=== PATIENT | female | born 1975 | race Caucasian/White ===

== ENCOUNTER 2016-07-14 09:21 | Emergency (ER) | payer OTHER ==
[~2016-07-14] VITALS: Ht 162.6 cm; Wt 94.8 kg
[~2016-07-14 09:21] MED LIST: CEPH-264 PO; CLIN150C14 PO; FAMO-63 PO; PRED20TA PO; TRIA15CR TP
[2016-07-14 09:48] VITALS: BP 138/94
[2016-07-14] MEDS ORDERED: CYCLOBENZAPRINE 10 MG TABLET. PO ONE (10:15)
[2016-07-14] MEDS ORDERED: IBUPROFEN 800 MG TABLET. PO ONE (10:15)
[2016-07-14] MEDS ORDERED: CYCL10TA2 PO (10:20)
--- NOTE | 2016-07-14 10:20 | PHYS DOC ---
Past Medical History Past Medical History: Bipolar Past Surgical History: , Tubal ligation Additional Past Surgical Histo: D&C Additional Information: 0.75 TO 1 PPD Alcohol Use: Rarely Drug Use: None Adult General Chief Complaint Chief Complaint: SHOULDER INJURY [facility] HPI Patient is a 40 year old female presents to the emergency department with a history of left upper back pain for the last 3 days. Patient states she woke up with the pain and discomfort. She states she had taken Ibuprofen and Wing without relief. She states she has tried heat to the back without relief. Patient denies numbness or tingling in the hands. Review of Systems Review of Systems Constitutional: Denies fever or chills [] Eyes: Denies change in visual acuity, redness, or eye pain [] HENT: Denies nasal congestion or sore throat [] Respiratory: Denies cough or shortness of breath [] Cardiovascular: No additional information not addressed in HPI [] GI: Denies abdominal pain, nausea, vomiting, bloody stools or diarrhea [] : Denies dysuria or hematuria [] Musculoskeletal: left upper back pain denies joint pain [] Integument: Denies rash or skin lesions [] Neurologic: Denies headache, focal weakness or sensory changes [] Endocrine: Denies polyuria or polydipsia [] Allergies Allergies Allergies Coded Allergies Type Severity Reaction Last Updated Verified adhesive tape Allergy Intermediate 10/17/14 No bacitracin Allergy Intermediate rash 12/01/14 No neomycin Allergy Intermediate rash 12/01/14 No polymyxin B Allergy Intermediate rash 12/01/14 No Physical Exam Physical Exam Constitutional: Well developed, well nourished, no acute distress, non-toxic appearance. [] HENT: Normocephalic, atraumatic, bilateral external ears normal, oropharynx moist, no oral exudates, nose normal. [] Eyes: PERRLA, EOMI, conjunctiva normal, no discharge. [] Neck: Normal range of motion, no tenderness, supple, no stridor. [] Cardiovascular:Heart rate regular rhythm] Lungs & Thorax: no respiratory distress Skin: Warm, dry, no erythema, no rash. [] Back: left upper back tenderness. No cervical spine, no thoracic spine tenderness, no step-offs, no deformities noted. Extremities: No tenderness, no cyanosis, no clubbing, ROM intact, no edema. Patient with full ROM of the left arm, good sensation noted bilateral arms, equal strength noted bilaterally. Neurologic: Alert and oriented X 3, normal motor function, normal sensory function, no focal deficits noted. [] Psychologic: Affect normal, judgement normal, mood normal. [] Current Patient Data Vital Signs Vital Signs Date Time Temp Pulse Resp B/P (MAP) Pulse Ox O2 Delivery O2 Flow Rate FiO2 07/14/16 09:48 98.5 111 24 138/94 (109) 98 Room Air 98.5 EKG EKG [] Radiology/Procedures Radiology/Procedures [] Course & Med Decision Making Course & Med Decision Making Pertinent Labs and Imaging studies reviewed. (See chart for details) Patient denies injury of trauma, states she woke up with the discomfort 3 days ago. Patient will be recommended to use Flexeril to help with muscle spasm. She was instructed this medication will cause drowsiness do not take if you need to be alert and oriented. Ibuprofen 800 mg every 8 hours with food, stop taking if you develop upset stomach. Ice packs on 20 minutes and off 20 minutes several times a day. Signs and symptoms to return to the emergency department has been provided to patient. Recommended following up with PCP in 7-10 days. Patient agrees with discharge instructions, treatment regimen and followup recommendations. [] Dragon Disclaimer Dragon Disclaimer This electronic medical record was generated, in whole or in part, using a voice recognition dictation system. Departure Departure Impression: Primary Impression: Upper back pain on left side Disposition: 01 HOME, SELF-CARE Condition: STABLE Referrals: NO PCP (PCP) Patient Instructions: Back Pain, Adult, [id number] Additional Instructions: Flexeril will help with muscle spasm. This medication will cause drowsiness do not take if you need to be alert and oriented. Ibuprofen 800 mg every 8 hours with food, stop taking if you develop upset stomach. Ice packs on 20 minutes and off 20 minutes several times a day. Followup with primary care provider in 7-10 days. Return to emergency department as needed for signs and symptoms that become worse. Scripts Cyclobenzaprine Hcl (CYCLOBENZAPRINE HCL) 10 Mg Tablet 10 MG PO TID, #30 TAB Prov: SIENA LAN APRN 07/14/16 SIENA LAN APRN Jul 14, 2016 10:20
== END 2016-07-14 10:32 | disposition home or self-care (01) ==
LOC: ER 09:21
DX: M54.89 Other dorsalgia (principal); F31.9 Bipolar disorder, unspecified; F17.200 Nicotine dependence, unspecified, uncomplicated; Z98.890 Other specified postprocedural states; Z98.51 Tubal ligation status; Z88.1 Allergy status to other antibiotic agents; Z91.048 Other nonmedicinal substance allergy status
CPT/HCPCS: 99283

== ENCOUNTER 2017-07-07 09:46 | Emergency (ER) | payer SELFPAY, OTHER ==
[2017-07-07] MEDS: DEXAMETHASONE SOD PHOS 20 MG/5 ML VIAL. IM (10:26)
== END 2017-07-07 10:34 | disposition home or self-care (01) ==
LOC: ER 10:34
DX: L23.7 Allergic contact dermatitis due to plants, except food (principal); F31.9 Bipolar disorder, unspecified; Z98.51 Tubal ligation status; Z91.048 Other nonmedicinal substance allergy status; Z88.1 Allergy status to other antibiotic agents
CPT/HCPCS: 96372; 99283; J1100

== ENCOUNTER 2017-09-30 06:42 | Emergency (ER) | payer SELFPAY ==
[~2017-09-30] VITALS: Ht 162.6 cm; Wt 93.9 kg
[~2017-09-30 06:42] MED LIST changes: +CYCL10TA2 PO; +FAMO20TA5 PO; +PRED-220 PO
[2017-09-30 07:50] VITALS: BP 130/78
[2017-09-30] MEDS ORDERED: PRED20TA PO (08:27)
--- NOTE | 2017-09-30 08:27 | PHYS DOC ---
Past Medical History Past Medical History: No Pertinent History Past Surgical History: Additional Past Surgical Histo: D&C Alcohol Use: None Drug Use: None Adult General Chief Complaint Chief Complaint: SKIN RASH/ABSCESS HPI HPI 41 y/o female presents to ER for complaints of poison rosa ongoing for past 5 days. Pt reports she has been using Pepcid and topical cortisone cream. Patient states she has had minimal relief in symptoms with this treatment and with 18- month-old child at home has not been taking Benadryl due to medicine causing her to be drowsy. Patient denies any shortness of air, wheezing, or throat pain or swelling. Pt denies fever/chills. Pt reports she has had similar episodes of poison rosa/sumac and this episode hasn't got onto her face so she doesn't feel this episode as severe as previous ones. Review of Systems Review of Systems Constitutional: Denies fever or chills [] Eyes: Denies redness, or eye pain [] HENT: Denies throat swelling/pain or difficulty swallowing Respiratory: Denies cough or shortness of breath [] Cardiovascular: Denies CP/palpitations or chest tightness GI: Denies nausea/vomiting : Denies urinary sxs Musculoskeletal: Denies neck/joint pain [] Integument: Reports rash on arms/legs and abd/chest. Reports itching at rash site. Neurologic: Denies headache All other systems were reviewed and found to be within normal limits, except as documented in this note. Current Medications Current Medications Current Medications Medications (Trade) Dose Ordered Sig/Jennifer Start Time Stop Time Status Last Admin Dose Admin Prednisone (Prednisone) 50 mg 1X ONCE 09/30/17 08:45 09/30/17 08:46 DC Allergies Allergies Allergies Coded Allergies Type Severity Reaction Last Updated Verified adhesive tape Allergy Intermediate 10/17/14 No bacitracin Allergy Intermediate rash 12/01/14 No neomycin Allergy Intermediate rash 12/01/14 No polymyxin B Allergy Intermediate rash 12/01/14 No Physical Exam Physical Exam Constitutional: Well developed, well nourished, no acute distress, non-toxic appearance. [] HENT: Normocephalic, atraumatic, bilateral external ears normal, oropharynx moist, no oral exudates, nose normal. [] Eyes: PERRLA, conjunctiva normal, no discharge. [] Neck: Normal range of motion, no tenderness, supple, no gross adenopathy Cardiovascular:Heart rate regular rhythm, no murmur [] Lungs & Thorax: Bilateral breath sounds clear to auscultation. Resp. equal/ nonlabored Abdomen: Bowel sounds normal, soft, no tenderness Skin: Warm, dry. Diffuse rash on upper/lower extremities and trunk with mild erythema at site scabbed areas with no drainage at multiple sites- rash is raised, maculopapular rash diffuse linear pattern. No drainage. No blisters. Back: No tenderness, no CVA tenderness. [] Extremities: No tenderness, no cyanosis, no clubbing, ROM intact, no edema. [] Neurologic: Alert and oriented X 3, normal motor function, normal sensory function, no focal deficits noted. [] Psychologic: Affect normal, judgement normal, mood normal. [] Current Patient Data Vital Signs Vital Signs Date Time Temp Pulse Resp B/P (MAP) Pulse Ox O2 Delivery O2 Flow Rate FiO2 09/30/17 07:50 97.8 77 16 98 Room Air 97.8 EKG EKG [] Radiology/Procedures Radiology/Procedures [] Course & Med Decision Making Course & Med Decision Making Pt was offered IM steroid injection and preferred oral medications. Will give dose of Prednisone while in ER and pt was offered Pepcid- she preferred to take her own pepcid at home. Will provide pt with Rx for tapered 10 day course of Prednisone. Discharge instructions discussed and education provided on s&s to return to ER for. Discussed other OTC for tx- Calamine lotion, oatmeal bath, and benedryl if sxs worsen. Pt agreeable with discharge plan as discussed. Pt was in no visible distress with no resp. complaints. Dragon Disclaimer Dragon Disclaimer This electronic medical record was generated, in whole or in part, using a voice recognition dictation system. Departure Departure Impression: Primary Impression: Poison rosa Disposition: HOME, SELF-CARE Condition: STABLE Referrals: NO PCP (PCP) Patient Instructions: Poison [place] Additional Instructions: You can continue to take over the pepcid/benedryl or other antihistamine as directed on container. Calamine lotion to affected areas. Scripts Prednisone (PREDNISONE) 20 Mg Tablet 20 MG PO DAILY, #15 TAB 40 mg PO daily x 5 days starting 10/01 as initial dose given in ER- then 20mg x5 days Prov: RAOUL VERMA APRN 09/30/17 RAOUL EVRMA APRN Sep 30, 2017 08:27
[2017-09-30] MEDS ORDERED: predniSONE 10 MG TABLET PO ONE (08:45)
== END 2017-09-30 09:10 | disposition home or self-care (01) ==
LOC: ER 06:42
DX: L23.7 Allergic contact dermatitis due to plants, except food (principal); Z98.890 Other specified postprocedural states; Z88.1 Allergy status to other antibiotic agents; Z88.8 Allergy status to other drugs, medicaments and biological substances
CPT/HCPCS: 99283; J7512

== ENCOUNTER 2017-12-17 01:14 | Emergency (ER) | payer OTHER ==
[~2017-12-17] VITALS: Ht 162.6 cm; Wt 97.5 kg
--- NOTE | 2017-12-17 02:25 | PHYS DOC ---
Past Medical History Past Medical History: No Pertinent History Past Surgical History: Additional Past Surgical Histo: D&C Alcohol Use: None Drug Use: None Adult General Chief Complaint Chief Complaint: ITCHING HPI HPI Patient is a 41 year old female who presents with rash on both arms. This rash started to proximally 14 hours ago. Patient was exposed to poison oak in an area with known poison oak. Patient denies any difficulty breathing. Patient has tried [id number] Pepcid without any significant relief. The rash has been getting worse over time. Patient has not taken Benadryl due to having young children at home and not being able to be sedated. Patient has had previous reaction to poison alba. Patient reports that the rash is itchy. There is no drainage from the rash.[] Review of Systems Review of Systems Constitutional: Denies fever or chills [] Eyes: Denies change in visual acuity, redness, or eye pain [] HENT: Denies nasal congestion or sore throat [] Respiratory: Denies cough or shortness of breath [] Cardiovascular: No chest pain or palpitations[] GI: Denies abdominal pain, nausea, vomiting, bloody stools or diarrhea [] : Denies dysuria or hematuria [] Musculoskeletal: Denies back pain or joint pain [] Integument: See history of present illness[] Neurologic: Denies headache, focal weakness or sensory changes [] Endocrine: Denies polyuria or polydipsia [] All other systems were reviewed and found to be within normal limits, except as documented in this note. Allergies Allergies Allergies Coded Allergies Type Severity Reaction Last Updated Verified adhesive tape Allergy Intermediate 10/17/14 No bacitracin Allergy Intermediate rash 12/01/14 No neomycin Allergy Intermediate rash 12/01/14 No polymyxin B Allergy Intermediate rash 12/01/14 No Physical Exam Physical Exam Constitutional: Well developed, well nourished, no acute distress, non-toxic appearance. [] HENT: Normocephalic, atraumatic, bilateral external ears normal, oropharynx moist, no oral exudates, nose normal. [] Eyes: PERRLA, EOMI, conjunctiva normal, no discharge. [] Neck: Normal range of motion, no tenderness, supple, no stridor. [] Cardiovascular:Heart rate regular rhythm, no murmur [] Lungs & Thorax: Bilateral breath sounds clear to auscultation [] Abdomen: Bowel sounds normal, soft, no tenderness, no masses, no pulsatile masses. [] Skin: Erythematous plaque bilateral forearms. No drainage. No axillary lymphadenopathy. No petechiae, no ulcers.[] Back: No tenderness, no CVA tenderness. [] Extremities: No tenderness, no cyanosis, no clubbing, ROM intact, no edema. [] Neurologic: Alert and oriented X 3, normal motor function, normal sensory function, no focal deficits noted. [] Psychologic: Affect normal, judgement normal, mood normal. [] Current Patient Data Vital Signs Vital Signs Date Time Temp Pulse Resp B/P (MAP) Pulse Ox O2 Delivery O2 Flow Rate FiO2 12/17/17 01:45 97.9 84 14 122/79 (93) 92 Room Air 97.9 EKG EKG [] Radiology/Procedures Radiology/Procedures [] Course & Med Decision Making Course & Med Decision Making Pertinent Labs and Imaging studies reviewed. (See chart for details) Medical decision making: This appears to be a rhus dermatitis. No evidence of TEN, no staph scalded skin syndrome, no necrotizing fasciitis. No evidence of anaphylaxis. We will administer steroids given patient's limitation and sedation medicines. Will also recommend [id number] nonsedating antihistamines. ED course: Patient arrived, was placed in bed, tolerated exam well. Patient had steroids given intramuscularly without any complications. Patient was discharged in improved condition.[] Dragon Disclaimer Dragon Disclaimer This electronic medical record was generated, in whole or in part, using a voice recognition dictation system. Departure Departure Impression: Primary Impression: Rhus dermatitis Disposition: HOME, SELF-CARE Condition: GOOD Referrals: NO PCP (PCP) Patient Instructions: [employer] Additional Instructions: Follow-up with your regular doctor in 2 days. If you do not have a regular doctor, a list of local low-cost clinics is been provided. Return to the ER if worsening rash, difficulty breathing, or any other concerns. You may try an over -the-counter nonsedating antihistamine such as Claritin, Zyrtec, or Viv while the steroids are taking affect. KARL GUNTER DO Dec 17, 2017 02:25
[2017-12-17 02:43] VITALS: BP 126/78
[2017-12-17] MEDS ORDERED: BETAMET ACET&NA PHOS 30 MG/5 ML VIAL. IM ONE (03:00)
[2017-12-17] MEDS ORDERED: TRIAMCINOLONE ACETONIDE 40 MG/ML VIAL. IM ONE (03:00)
== END 2017-12-17 02:44 | disposition home or self-care (01) ==
LOC: ER 01:14
DX: L23.7 Allergic contact dermatitis due to plants, except food (principal); Z88.1 Allergy status to other antibiotic agents; Z88.8 Allergy status to other drugs, medicaments and biological substances
CPT/HCPCS: 96372; 99284; J0702; J3301

== ENCOUNTER 2018-05-16 08:44 | Emergency (ER) | payer OTHER ==
[~2018-05-16] VITALS: Ht 162.6 cm; Wt 104.3 kg
[2018-05-16] MEDS ORDERED: PRED-220 PO (09:38)
[2018-05-16] MEDS ORDERED: CETI10TA22 PO (09:38)
--- NOTE | 2018-05-16 09:39 | PHYS DOC ---
Past Medical History Past Medical History: No Pertinent History Past Surgical History: Additional Past Surgical Histo: D&C Alcohol Use: None Drug Use: None Adult General Chief Complaint Chief Complaint: SKIN RASH/ABSCESS HPI HPI Patient is a 42 year old female who presents with a rash that began 2 days ago. Patient states the rash began while cleaning a fence line, she believes the rash is poison alba or poison oak. Patient denies any fever. She states this rash is all over her body. Review of Systems Review of Systems Constitutional: Denies fever or chills [] Musculoskeletal: Denies back pain or joint pain [] Integument:reports rash Neurologic: Denies headache, focal weakness or sensory changes [] All other systems were reviewed and found to be within normal limits, except as documented in this note. Allergies Allergies Allergies Coded Allergies Type Severity Reaction Last Updated Verified adhesive tape Allergy Intermediate 10/17/14 No bacitracin Allergy Intermediate rash 12/01/14 No neomycin Allergy Intermediate rash 12/01/14 No polymyxin B Allergy Intermediate rash 12/01/14 No Physical Exam Physical Exam Constitutional: Well developed, well nourished, no acute distress, non-toxic appearance. [] Skin: Warm, dry, there is small amount of erythema on her face and swelling on her upper eyelids consistent with contact dermatitis rash from poison oak or poison alba, there is mild erythematous papular rash on bilateral upper extremity , left lower quadrant, bilateral lower extremities. Back: No tenderness, no CVA tenderness. [] Extremities: No tenderness, no cyanosis, no clubbing, ROM intact, no edema. [] Neurologic: Alert and oriented X 3, normal motor function, normal sensory function, no focal deficits noted. [] Psychologic: Affect normal, judgement normal, mood normal. [] Current Patient Data Vital Signs Vital Signs Date Time Temp Pulse Resp B/P (MAP) Pulse Ox O2 Delivery O2 Flow Rate FiO2 05/16/18 09:08 97.9 93 18 175/89 (117) 98 Room Air 97.9 EKG EKG [] Radiology/Procedures Radiology/Procedures [] Course & Med Decision Making Course & Med Decision Making Pertinent Labs and Imaging studies reviewed. (See chart for details) Patient has contact dermatitis from poison alba or poison oak thorough out her body from the face to the legs. She will be discharged with prednisone, Pepcid and Zyrtec, she prefers not to take Benadryl. Follow-up with her own doctor in 1 -2 weeks as needed. Les Disclaimer Les Disclaimer This electronic medical record was generated, in whole or in part, using a voice recognition dictation system. Departure Departure Impression: Primary Impression: Contact dermatitis due to poison oak Disposition: 01 HOME, SELF-CARE Condition: STABLE Referrals: NO PCP (PCP) Follow-up with your doctor in 1-2 weeks as needed Patient Instructions: Contact Dermatitis, Poison [place], [id number] Additional Instructions: You were evaluated in the emergency room for contact dermatitis rash from poison oak or poison alba, continue using Pepcid and Zyrtec daily. Take the prescribed prednisone as ordered until completed. Scripts Cetirizine Hcl (ZYRTEC) 10 Mg Tablet 1 TAB PO DAILY, #30 TAB 2 Refills Prov: MOISE DICKEY APRN 05/16/18 Prednisone (PREDNISONE ) 10 Mg Tablet 10 MG PO UD for PREDNISONE TAPER, #39 TAB 0 Refills Take 3 tablets by mouth twice a day for 3 days, then take 2 tablets by mouth twice a day for 3 days, then take 1 tablet by mouth twice a day for 3 days, then take 1 tablet by mouth daily x 3 days, then stop. Prov: MOISE DICKEY APRN 05/16/18 MOISE DICKEY APRN May 16, 2018 09:39
== END 2018-05-16 09:48 | disposition home or self-care (01) ==
LOC: ER 08:44
DX: L25.5 Unspecified contact dermatitis due to plants, except food (principal); Z88.1 Allergy status to other antibiotic agents; Z88.8 Allergy status to other drugs, medicaments and biological substances
CPT/HCPCS: 99283

== ENCOUNTER 2018-06-19 09:23 | Emergency (ER) | payer OTHER ==
[~2018-06-19] VITALS: Ht 162.6 cm; Wt 104.3 kg
[~2018-06-19 09:23] MED LIST changes: +CETI10TA22 PO
[2018-06-19 09:27] VITALS: BP 150/86
--- NOTE | 2018-06-19 09:42 | PHYS DOC ---
Past Medical History Past Medical History: No Pertinent History (MOISE DICKEY APRN) Past Surgical History: Additional Past Surgical Histo: D&C (MOISE DICKEY APRN) Alcohol Use: Rarely Drug Use: None (MOISE DICKEY APRN) Adult General Chief Complaint Chief Complaint: COUGH HPI HPI Patient is a 42 year old female with history of bronchitis, smoking, who presents to the ED today complaining of a productive cough, nasal congestion, sore throat, symptoms began yesterday. Patient states her 2 children have similar symptoms. Denies any fever. (MOISE DICKEY APRN) Review of Systems Review of Systems Constitutional: Denies fever or chills [] Eyes: Denies change in visual acuity, redness, or eye pain [] HENT: Reports nasal congestion and sore throat [] Respiratory: Reports cough, shortness of breath [] Cardiovascular: No additional information not addressed in HPI [] GI: Denies abdominal pain, nausea, vomiting, bloody stools or diarrhea [] : Denies dysuria or hematuria [] Musculoskeletal: Denies back pain or joint pain [] Integument: Denies rash or skin lesions [] Neurologic: Denies headache, focal weakness or sensory changes [] All other systems were reviewed and found to be within normal limits, except as documented in this note. (MOISE DICKEY APRN) Allergies Allergies Allergies Coded Allergies Type Severity Reaction Last Updated Verified adhesive tape Allergy Intermediate 10/17/14 No bacitracin Allergy Intermediate rash 12/01/14 No neomycin Allergy Intermediate rash 12/01/14 No polymyxin B Allergy Intermediate rash 12/01/14 No (SPIKE WRIGHT MD) Physical Exam Physical Exam Constitutional: Well developed, well nourished, no acute distress, non-toxic appearance. [] HENT: Normocephalic, atraumatic, bilateral external ears normal, oropharynx moist, no oral exudates, nose normal. [] Eyes: PERRLA, EOMI, conjunctiva normal, no discharge. [] Neck: Normal range of motion, no tenderness, supple, no stridor. [] Cardiovascular:Heart rate regular rhythm, no murmur [] Lungs & Thorax: Bilateral breath sounds clear to auscultation [] Abdomen: Bowel sounds normal, soft, no tenderness, no masses, no pulsatile masses. [] Skin: Warm, dry, no erythema, no rash. [] Back: No tenderness, no CVA tenderness. [] Extremities: No tenderness, no cyanosis, no clubbing, ROM intact, no edema. [] Neurologic: Alert and oriented X 3, normal motor function, normal sensory function, no focal deficits noted. [] Psychologic: Affect normal, judgement normal, mood normal. [] (MOISE DICKEY APRN) Current Patient Data Vital Signs Vital Signs Date Time Temp Pulse Resp B/P (MAP) Pulse Ox O2 Delivery O2 Flow Rate FiO2 06/19/18 09:27 98.5 111 20 150/86 (107) 96 Room Air 98.5 (SPIKE WRIGHT MD) Lab Values Laboratory Tests Test 06/19/18 09:40 Group A Streptococcus Rapid Negative (NEGATIVE) (SPIKE WRIGHT MD) Lab Values Laboratory Tests Test 06/19/18 09:40 Group A Streptococcus Rapid Negative (NEGATIVE) (MOISE DICKEY APRN) EKG EKG [] (MOISE DICKEY APRN) Radiology/Procedures Radiology/Procedures [] (MOISE DICKEY APRN) Course & Med Decision Making Course & Med Decision Making Pertinent Labs and Imaging studies reviewed. (See chart for details) This is a 42-year-old female patient with history of bronchitis, smoking, presenting with cough and nasal congestion and a sore throat, symptoms began yesterday. Negative rapid strep. Vitals is stable. Patient was encouraged to consider smoking cessation. Discharged with albuterol inhaler, prednisone and Tessalon Perles. Encouraged to continue taking allergy medications as well. Follow-up with PCP in 1-2 weeks. (MOISE DICKEY APRN) Course & Med Decision Making This patient was seen by an NANCIE. I did not see or treat the patient unless otherwise specified. (SPIKE WRIGHT MD) Dragon Disclaimer Dragon Disclaimer This electronic medical record was generated, in whole or in part, using a voice recognition dictation system. (MOISE DICKEY APRN) Departure Departure Impression: Primary Impression: Acute bronchitis Additional Impressions: Smoking addiction Acute viral pharyngitis Disposition: 01 HOME, SELF-CARE Condition: STABLE Referrals: NO PCP (PCP) follow up with your doctor in 1-2 weeks Patient Instructions: Acute Bronchitis, [id number], Smoking Cessation, Viral Pharyngitis Additional Instructions: You were evaluated in the emergency room with symptoms consistent of viral bronchitis, your strep test is negative. Please take the prescribed medications as ordered, continue taking allergy medications. Consider smoking cessation. Follow-up with your doctor in 1-2 weeks. Scripts Albuterol Sulfate (Proventil Hfa) 6.7 Gm Hfa.aer.ad 1 PUFF INH PRN Q6HRS PRN for SHORTNESS OF BREATH, #1 INHALER Prov: MOISE DICKEY APRN 06/19/18 Benzonatate (TESSALON PERLE) 100 Mg Capsule 1 CAP PO TID, #30 CAP Prov: MOISE DICKEY APRN 06/19/18 Prednisone (PREDNISONE) 50 Mg Tablet 1 TAB PO DAILY, #5 TAB Prov: MOISE DICKEY APRN 06/19/18 Problem Qualifiers Primary Impression: Acute bronchitis Bronchitis organism: unspecified organism Qualified Codes: J20.9 - Acute bronchitis, unspecified MOISE DICKEY APRN June 19, 2018 09:42 SPIKE WRIGHT MD June 19, 2018 17:08
[2018-06-19] MEDS ORDERED: PRED50TA PO (09:59)
[2018-06-19] MEDS ORDERED: PROVENTIL HFA6.7 G2 INH (09:59)
[2018-06-19] MEDS ORDERED: BENZ100C PO (09:59)
== END 2018-06-19 10:03 | disposition home or self-care (01) ==
LOC: ER 09:23
DX: J20.9 Acute bronchitis, unspecified (principal); J02.8 Acute pharyngitis due to other specified organisms; B97.89 Other viral agents as the cause of diseases classified elsewhere; F17.200 Nicotine dependence, unspecified, uncomplicated; Z88.1 Allergy status to other antibiotic agents; Z88.8 Allergy status to other drugs, medicaments and biological substances
CPT/HCPCS: 87070; 87880; 99283; 99284

== ENCOUNTER 2018-08-11 09:20 | Emergency (ER) | payer OTHER ==
[~2018-08-11] VITALS: Ht 162.6 cm; Wt 97.5 kg
[~2018-08-11 09:20] MED LIST changes: +BENZ100C PO; +PRED50TA PO; +PROVENTIL HFA6.7 G2 INH
[2018-08-11 09:38] VITALS: BP 165/85
[2018-08-11] MEDS ORDERED: TRIA15CR3 TP (09:52)
[2018-08-11] MEDS ORDERED: FAMO-63 PO (09:52)
[2018-08-11] MEDS ORDERED: CETI10TA22 PO (09:52)
[2018-08-11] MEDS ORDERED: METH4TAB2 PO (09:52)
--- NOTE | 2018-08-11 09:52 | PHYS DOC ---
Past Medical History Past Medical History: Bipolar Past Surgical History: Additional Past Surgical Histo: D&C Alcohol Use: Rarely Drug Use: None Adult General Chief Complaint Chief Complaint: SKIN RASH/ABSCESS [facility] HPI Patient is a 42 year old female who presents with workign in the yard yesterday and now has a red itchy rash with clear blisters to some patches all over her body. The rash has since spread to face but it is not in her eyes or mouth. Rates her discomfort at a 9/10. Review of Systems Review of Systems Constitutional: Denies fever or chills [] Eyes: Denies change in visual acuity, redness, or eye pain [] HENT: Denies nasal congestion or sore throat [] Respiratory: Denies cough or shortness of breath [] Cardiovascular: No additional information not addressed in HPI [] GI: Denies abdominal pain, nausea, vomiting, bloody stools or diarrhea [] : Denies dysuria or hematuria [] Musculoskeletal: Denies back pain or joint pain [] Integument: rash or skin lesions [] Neurologic: Denies headache, focal weakness or sensory changes [] Endocrine: Denies polyuria or polydipsia [] All other systems were reviewed and found to be within normal limits, except as documented in this note. Allergies Allergies Allergies Coded Allergies Type Severity Reaction Last Updated Verified adhesive tape Allergy Intermediate 10/17/14 No bacitracin Allergy Intermediate rash 12/01/14 No neomycin Allergy Intermediate rash 12/01/14 No polymyxin B Allergy Intermediate rash 12/01/14 No Physical Exam Physical Exam Constitutional: Well developed, well nourished, no acute distress, non-toxic appearance. [] HENT: Normocephalic, atraumatic, bilateral external ears normal, oropharynx moist, no oral exudates, nose normal. [] Eyes: PERRLA, EOMI, conjunctiva normal, no discharge. [] Neck: Normal range of motion, no tenderness, supple, no stridor. [] Cardiovascular:Heart rate regular rhythm, no murmur [] Lungs & Thorax: Bilateral breath sounds clear to auscultation [] Abdomen: Bowel sounds normal, soft, no tenderness, no masses, no pulsatile masses. [] Skin: Warm, dry, erythema patches with small cluster blisters to generalized body. [] Back: No tenderness, no CVA tenderness. [] Extremities: No tenderness, no cyanosis, no clubbing, ROM intact, no edema. [] Neurologic: Alert and oriented X 3, normal motor function, normal sensory function, no focal deficits noted. [] Psychologic: Affect normal, judgement normal, mood normal. [] Current Patient Data Vital Signs Vital Signs Date Time Temp Pulse Resp B/P (MAP) Pulse Ox O2 Delivery O2 Flow Rate FiO2 08/11/18 09:38 97.5 87 18 165/85 (111) 98 Room Air 97.5 EKG EKG [] Radiology/Procedures Radiology/Procedures [] Course & Med Decision Making Course & Med Decision Making Patient is a 42 year old female who presents with working in the yard yesterday and now has a red itchy rash with clear blisters to some patches all over her body. The rash has since spread to face but it is not in her eyes or mouth. Ra lexx her discomfort at a 9/10. Patient has large patches of a [employer] rash with clear blisters to some of the patches all over her body from head to toe. Patient states she is working in the yard yesterday and there were some findings she was clearing. Patient states she has had poison rosa or poison [place]ac in the past and that is what this feels and looks like. Patient has some 1+ swelling to below eyes with pink patch under bilateral eyes. Conjunctiva is white. Patient denies any visual changes or eye pain. No drainage from eyes or around eyes. There is no drainage from the rash patches. No signs of infection. Vital signs within normal limits. Ambulatory with a steady gait. Speaks in full clear sentences. Patient is given Medrol dose pack, Zyrtec, Pepcid, Triamcinolone cream. Dragon Disclaimer Dragon Disclaimer This electronic medical record was generated, in whole or in part, using a voice recognition dictation system. Departure Departure Impression: Primary Impression: Contact dermatitis due to poison rosa Disposition: 01 HOME, SELF-CARE Condition: STABLE Referrals: NO PCP (PCP) Patient Instructions: Poison [place] Additional Instructions: Follow-up with primary care provider. Use medications as prescribed. If eyes begin to hurt or become red return to ED. Scripts Triamcinolone Acetonide (TRIAMCINOLONE ACETONIDE 0.1% CREAM) 15 Gm Cream..g. 1 NANCIE TP TID, #1 TUBE Prov: SIENA GALLAGHER APRN 08/11/18 Cetirizine Hcl (ZYRTEC) 10 Mg Tablet 1 TAB PO DAILY, #10 TAB 2 Refills Prov: SIENA GALLAGHER APRN 08/11/18 Famotidine (PEPCID) 20 Mg Tablet 20 MG PO BID for 7 Days, #14 TAB Prov: SIENA GALLAGHER PURIFICATION SUPERVISOR 08/11/18 Methylprednisolone (MEDROL) 4 Mg Tab.ds.pk 1 PKG PO UD, #1 PKG Prov: SIENA GALLAGHER 08/11/18 SIENA GALLAGHER APRN Aug 11, 2018 09:52
== END 2018-08-11 10:13 | disposition home or self-care (01) ==
LOC: ER 09:20
DX: L23.7 Allergic contact dermatitis due to plants, except food (principal); F31.9 Bipolar disorder, unspecified; Z88.1 Allergy status to other antibiotic agents; Z88.8 Allergy status to other drugs, medicaments and biological substances
CPT/HCPCS: 99283

== ENCOUNTER 2018-08-24 23:40 | Emergency (ER) | payer OTHER ==
[~2018-08-24 23:40] MED LIST changes: +METH4TAB2 PO; +TRIA15CR3 TP
== END 2018-08-25 01:09 | disposition left against medical advice (07) ==
LOC: ER 23:40
DX: R21 Rash and other nonspecific skin eruption (principal); Z53.21 Procedure and treatment not carried out due to patient leaving prior to being seen by health care provider